=== PATIENT | female | born 1970 | race Hispanic/Latino ===

== ENCOUNTER 2017-09-10 06:10 | Day surgery (SDC) | payer MEDICARE ==
[~2017-09-10 06:10] MED LIST: ANCEF/STERILE WATER 2 GM/20 ML 2 GM/20 ML SYRINGE IV NR; NACL 0.9% 1000 ML 1,000 ML IV SCH
[2017-09-10] MEDS ORDERED: HEPARIN 10,000 UNITS/10 ML ONE (08:33)
[2017-09-10] MEDS ORDERED: HEPARIN/NS 5000 UNIT/500ML(CATH LAB) 500 ML IR ONE (08:33)
[2017-09-10] MEDS ORDERED: NACL 0.9% 250ML 250 ML ONE (08:34)
[2017-09-10] MEDS ORDERED: ANCEF/STERILE WATER 2 GM/20 ML 2 GM/20 ML SYRINGE IV ONE (08:34)
[2017-09-10] MEDS ORDERED: HEPARIN ONE (08:37)
[2017-09-10] MEDS ORDERED: XYLOCAINE 1%/ EPI 1:100,000 INFILTRATI ONE (08:41)
[2017-09-10] MEDS: VERSED ONE ×2 (08:56→09:02)
[2017-09-10] MEDS: SUBLIMAZE ONE ×2 (08:57→09:03)
[2017-09-10] MEDS: HEPARIN 10,000 UNITS/10 ML ONE ×2 (09:08→09:09)
--- NOTE | 2017-09-10 09:19 | Short Stay Summary ---
Short Stay Documentation Date of service: 09/10/17 - History H&P: obtained from office Past Medical History: dialysis, ESRD - Allergies and Medications Current Medications: Allergies No Known Allergies Allergy (Unverified 09/10/17 06:10) Home Medications Medication Instructions Recorded Confirmed Last Taken Type Aspirin [Aspirin EC] 81 mg PO DAILY 09/10/17 09/10/17 09/09/17 History Ergocalciferol (Vitamin D2) 2,000 unit PO DAILY 09/10/17 09/10/17 09/09/17 History [Vitamin D2] Furosemide [Lasix] 80 mg PO BID 09/10/17 09/10/17 09/09/17 History Insulin Aspart [NovoLOG 100 30 unit SQ TID 09/10/17 09/10/17 09/10/17 History UNITS/ML VIAL] Nebivolol HCl [Bystolic] 5 mg PO BID 09/10/17 09/10/17 09/09/17 History Ondansetron [Zofran TAB] 4 mg PO DAILY PRN 09/10/17 09/10/17 1 Month Ago History ~08/10/17 Spironolactone [Spironolactone] 25 mg PO DAILY 09/10/17 09/10/17 09/09/17 History Valsartan [Diovan] 320 mg PO QDAY 09/10/17 09/10/17 09/10/17 History Active Medications Cefazolin Sodium (Ancef/Sterile Water 2 Gm/20 Ml) 2 gm in 20 mls @ 80 mls/hr IV PREOP NR PRN Reason: Protocol Stop: 09/10/17 23:59 Sodium Chloride (Nacl 0.9% 1000 Ml) 1,000 mls @ 42 mls/hr IV DIRECT COURTNEY - Brief post op/procedure progress note Date of procedure: 09/10/17 Pre-op diagnosis: malfunctioning permacath Post-op diagnosis: same Procedure: replace existing permacath over a wire Anesthesia: local (sedation) Findings: excellent flow from pboth ports Surgeon: BABAK CAI Chef Kitchen Manager: GRACE SANDERSON Estimated blood loss: none Pathology: none Condition: stable - Hospital course Hospital course: benign - Disposition Condition at discharge: Good Disposition: DC-01 TO HOME OR SELFCARE Short Stay Discharge Plan Activity: no restrictions Diet: regular Wound: per your surgeon's advice Follow up with: BABAK CAI MD [Staff Physician] - 7 Days
--- NOTE | 2017-09-10 09:24 | Operative Report ---
Operative Report Operative Report: Date of procedure: 09/10/2017 Pre-operative diagnosis: Malfunctioning permacath Post-operative diagnosis: Same Procedure name(s): Replacement of existing permacath over the wire with a glide Path dialysis catheter Surgeon: Jaime Arzola MD Coremaking Machine Operator: Jhony Reid M.D. Anesthesia: Local with sedation; moderate sedation administered under my direction for a total of 18 minutes (1 unit of initial anesthesia and 1 unit of follow-up anesthesia) EBL: Minimal Operative indication: Patient is a 47-year-old woman with end-stage renal failure who has a malfunctioning permacath. Findings: Excellent flow from both ports of the new catheter after the procedure. Catheter was placed in the right atrium. Procedure: Patient was placed on the table in supine position. She was given appropriate anesthesia. The area over the right neck and chest was prepped with of core prep solution and draped in the usual sterile fashion. 2% lidocaine plain was used for local anesthesia. The area over the skin exit site was anesthetized. The catheter was freed up from the surrounding tissue. The existing catheter was cannulated with 2 stiff Glidewire and the Glidewire were placed into the right iliac vein. The catheter was then removed over the stiff Glidewire while pressure was held over the internal jugular vein. The wires and surrounding area were reprepped with chlor prep solution. The new catheter was then placed over the 2 wires and directly into the central circulation. The tip was placed at the right atrium. The guidewires were removed. Aspiration of the catheters revealed excellent flow from both ports. They were flushed with heparinized saline and then filled to their stated volume with 1000 per unit milliliter heparin and both ports. The skin exit site was closed with 4-0 Monocryl over the catheter. The catheter was sewn into place with 20 proline. Sterile dressings were applied. The patient tolerated the procedure well.
[2017-09-10 10:26] VITALS: BP 153/69
== END 2017-09-10 10:20 | disposition home or self-care (01) ==
LOC: CATHLABREC 06:10
PROVIDERS: ATTEND Surgery Vascular Surgery
DX: T82.41XA Breakdown (mechanical) of vascular dialysis catheter, initial encounter (principal); I12.0 Hypertensive chronic kidney disease with stage 5 chronic kidney disease or end stage renal disease; E11.22 Type 2 diabetes mellitus with diabetic chronic kidney disease; N18.6 End stage renal disease; Y83.1 Surgical operation with implant of artificial internal device as the cause of abnormal reaction of the patient, or of later complication, without mention of misadventure at the time of the procedure; Z79.82 Long term (current) use of aspirin; Z79.899 Other long term (current) drug therapy; Z79.4 Long term (current) use of insulin
CPT/HCPCS: 36415; 36578; 36581; 77001; 84132; C1750; C1769; J0690; J1644; J2250; J3010; J7050